=== PATIENT | male | born 1945 | race Caucasian/White ===

== ENCOUNTER 2017-01-21 07:40 | Outpatient (CLI) | payer MEDICARE, OTHER | END 2017-01-21 07:41 | disposition home or self-care (01) | DX: I10 Essential (primary) hypertension (principal); R97.20 Elevated prostate specific antigen [PSA]; E78.5 Hyperlipidemia, unspecified ==

== ENCOUNTER 2018-04-06 07:41 | Outpatient (CLI) | payer MEDICARE, OTHER ==
[2018-04-06 07:53] LABS: BASOPHILS % (AUTO) 0.9 %; EOSINOPHILS # (AUTO) 0.2 10^3/uL (0.0-0.7); HGB - HEMOGLOBIN 15.2 g/dL (14.0-18.0); MEAN CORPUSCULAR HEMOGLOBIN 28.7 pg (27.0-31.0); MEAN CORPUSCULAR HGB CONC 33.6 g/dL (32.0-36.0); MEAN CORPUSCULAR VOLUME 85.5 fL (80.0-94.0); MEAN PLATELET VOLUME 8.7 fL (7.4-11.4); MONOCYTES # (AUTO) 0.5 10^3/uL (0.0-1.0); MONOCYTES % (AUTO) 10.5 %; NEUTROPHILS # (AUTO) 2.5 10^3/uL (1.5-6.6); NEUTROPHILS % (AUTO) 47.6 %; PLT - PLATELET COUNT 191 10^3/uL (130-450); RED BLOOD COUNT 5.29 10^6/uL (4.70-6.10); RED CELL DISTRIBUTION WIDTH 15.3 % (12.0-15.0); WHITE BLOOD COUNT 5.2 x10^3/uL (4.8-10.8)
[2018-04-06 08:51] LABS: ALBUMIN/GLOBULIN RATIO 1.2 (1.0-2.2); ALKALINE PHOSPHATASE 50 IU/L (42-121); ALT ALANINE AMINOTRANSFERASE 23 IU/L (10-60); AST ASPARTATE AMINOTRANSFERASE 22 IU/L (10-42); BILIRUBIN,TOTAL 0.9 mg/dL (0.2-1.0); BUN - BLOOD UREA NITROGEN 16 mg/dL (6-20); CALCIUM 8.9 mg/dL (8.5-10.3); CARBON DIOXIDE - CO2 25 mmol/L (21-32); CHLORIDE 104 mmol/L (101-111); CHOLESTEROL 162 mg/dL; CREATININE 0.9 mg/dL (0.6-1.2); GFR - MDRD 82 (>89); GLUCOSE 99 mg/dL (70-100); HDL CHOLESTEROL 54 mg/dL; LDL CHOLESTEROL,CALCULATED 93 mg/dL; LDL/HDL RATIO 1.7 (<3.6); SODIUM 135 mmol/L (135-145); TOTAL PROTEIN 7.4 g/dL (6.7-8.2); VLDL CHOLESTEROL 15 mg/dL
[2018-04-06 08:56] LABS: PSA FREE 0.71 ng/mL (0.16-2.81)
[2018-04-06 08:57] LABS: PSA TOTAL 4.8 ng/mL (0.000-2.000)
== END 2018-04-06 07:42 | disposition home or self-care (01) ==
LOC: LAB 07:41
PROVIDERS: ATTEND Family Medicine
DX: R42 Dizziness and giddiness (principal); I10 Essential (primary) hypertension; E78.5 Hyperlipidemia, unspecified; R97.20 Elevated prostate specific antigen [PSA]; C67.9 Malignant neoplasm of bladder, unspecified
CPT/HCPCS: 36415; 80053; 80061; 83721; 84154; 85025

== ENCOUNTER 2018-04-20 21:15 | Emergency (ER) | payer MEDICARE, OTHER ==
[2018-04-20 21:21] VITALS: BP 139/78
--- NOTE | 2018-04-20 23:17 | ED Physician Documentation ---
PD HPI OPHTHO - Stated complaint Stated Complaint: DEBRI IN LT EYE - Chief complaint Chief Complaint: Heent - History obtained from History obtained from: Patient - History of Present Illness Timing - onset: Enter time (18:00), Today Timing - duration: Hours Timing - details: Abrupt onset Location: Left Quality / character: Other (FB sensation) Associated symptoms: FB sensation Similar symptoms before: Has not had sx before Recently seen: Not recently seen - Additional information Additional information: while driving this afternoon at approximately 6PM, patient had sudden FB sensation left eye. wears glasses but not contacts. despite irrigating the eye at home, FB sensation persisted and thus came to ED. while awaiting ED evaluation, he had sudden resolution of FB sensation and only has minimal grit sensation left eye. Review of Systems Eyes: reports: Irritation. denies: Loss of vision, Decreased vision, Photophobia, Discharge PD PAST MEDICAL HISTORY - Past Medical History Cardiovascular: Hypertension Respiratory: None Endocrine/Autoimmune: None GI: None : None HEENT: None Psych: None Musculoskeletal: None Derm: None - Past Surgical History Past Surgical History: Yes General: Hiatal hernia repair Ortho: Hip replacement - Present Medications Home Medications: Ambulatory Orders Medication Instructions Recorded Confirmed Finasteride 5 mg PO DAILY 01/19/16 01/19/16 Hydrochlorothiazide 25 mg PO DAILY 01/19/16 01/19/16 Lisinopril 20 mg PO DAILY 01/19/16 01/19/16 Metoprolol Succinate 50 mg PO BID 01/19/16 01/19/16 Simvastatin 10 mg PO DAILY 01/19/16 01/19/16 Neomycin/Poly/Dexam Ophth Oint 0.25 inch RIGHTEYE BID #1 tube 01/20/16 [Maxitrol Ophth Oint] - Allergies Allergies/Adverse Reactions: Allergies Allergy/AdvReac Type Severity Reaction Status Date / Time morphine AdvReac Emesis Verified 04/20/18 21:21 - Social History Does the pt smoke?: No Smoking Status: Never smoker Does the pt drink ETOH?: Yes Does the pt have substance abuse?: No - Immunizations Immunizations are current?: Yes - POLST Patient has POLST: No PD ED PE NORMAL - Vitals Vital signs reviewed: Yes - General General: Alert and oriented X 3, No acute distress, Well developed/nourished - HEENT HEENT: PERRL, EOMI PD ED PE EXPANDED - Eyes Eyes: Normal eyelids, No eyelid FB (everted), Nl conjunctiva/sclera, Fluorescein uptake (punctate uptake at limbus, 12 oclock position) Results - Vitals Vitals: Oxygen O2 Source Room air PD MEDICAL DECISION MAKING - ED course Complexity details: considered differential, d/w patient - Sepsis Event Vital Signs: Oxygen O2 Source Room air Departure - Departure Disposition: Home, Self Care Clinical Impression: Corneal abrasion, left Condition: Good Instructions: ED Eye Injury Corneal Abrasion Comments: 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 Use the antibiotic drops as follows: 1 drop in left eye four times per day for 5 days Discharge Date/Time: 04/20/18 23:45
[2018-04-20] MEDS ORDERED: POLYMYXIN B/TRIMETH OPHTH DROPS LEFTEYE STA (23:30)
== END 2018-04-20 23:45 | disposition home or self-care (01) ==
LOC: ED 21:15
DX: S05.02XA Injury of conjunctiva and corneal abrasion without foreign body, left eye, initial encounter (principal); X58.XXXA Exposure to other specified factors, initial encounter; Y92.810 Car as the place of occurrence of the external cause; I10 Essential (primary) hypertension
CPT/HCPCS: 99283; A9270

== ENCOUNTER 2018-05-31 11:02 | Emergency (ER) | payer MEDICARE, OTHER ==
[2018-05-31 11:20] VITALS: BP 146/73
--- NOTE | 2018-05-31 12:54 | ED Physician Documentation ---
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.) Where injury occurred: Work Timing - onset: Today Timing - details: Abrupt onset Similar symptoms before: Has not had sx before Recently seen: Not recently seen Review of Systems Neurologic: denies: Focal weakness, Numbness PD PAST MEDICAL HISTORY - Past Medical History Cardiovascular: Hypertension Respiratory: None Endocrine/Autoimmune: None GI: None : None HEENT: None Psych: None Musculoskeletal: None Derm: None - Past Surgical History Past Surgical History: Yes General: Hiatal hernia repair Ortho: Hip replacement - Present Medications Home Medications: Ambulatory Orders Medication Instructions Recorded Confirmed Finasteride 5 mg PO DAILY 01/19/16 01/19/16 Hydrochlorothiazide 25 mg PO DAILY 01/19/16 01/19/16 Lisinopril 20 mg PO DAILY 01/19/16 01/19/16 Metoprolol Succinate 50 mg PO BID 01/19/16 01/19/16 Simvastatin 10 mg PO DAILY 01/19/16 01/19/16 Neomycin/Poly/Dexam Ophth Oint 0.25 inch RIGHTEYE BID #1 tube 01/20/16 [Maxitrol Ophth Oint] - Allergies Allergies/Adverse Reactions: Allergies Allergy/AdvReac Type Severity Reaction Status Date / Time morphine AdvReac Emesis Verified 05/31/18 11:20 - Social History Does the pt smoke?: No Smoking Status: Never smoker Does the pt drink ETOH?: Yes Does the pt have substance abuse?: No - Immunizations Immunizations are current?: Yes - POLST Patient has POLST: No PD ED PE NORMAL - Vitals Vital signs reviewed: Yes - General General: Alert and oriented X 3, No acute distress, Well developed/nourished - Derm Derm: Normal color, Warm and dry - Extremities Extremities: Other (dorsum left ring finger MCP with 1.5 cm laceration to fatty tissue. No FB. No deep structures involved. ) Results - Vitals Vitals: Vital Signs - 24 hr 05/31/18 11:16 Temperature 36.0 C L Heart Rate 64 Respiratory 16 Rate Blood Pressure 146/73 H O2 Saturation 96 Oxygen O2 Source Room air Procedures - Laceration (location) left MCP dorsal area Length in cm: 1.5 Wound type: Linear, Into subcut fat, Clean Neurovascular status: No: Sensory intact, Motor intact Anesthesia: Marcaine 0.25% Wound Preparation: Irrigated copiously NS Skin layer closure: Nylon, Interrupted, Size #-0 - enter number Other: Patient tolerated well, No complications, Neurovascular intact, Dressing applied, Tetanus UTD PD MEDICAL DECISION MAKING - Sepsis Event Vital Signs: Vital Signs - 24 hr 05/31/18 11:16 Temperature 36.0 C L Heart Rate 64 Respiratory 16 Rate Blood Pressure 146/73 H O2 Saturation 96 Oxygen O2 Source Room air Departure - Departure Disposition: Home, Self Care Clinical Impression: Laceration of left hand Qualifiers: Encounter type: initial encounter Foreign body presence: without foreign body Qualified Code(s): S61.412A - Laceration without foreign body of left hand, initial encounter Condition: Stable Record reviewed to determine appropriate education?: Yes Instructions: ED Laceration Hand Follow-Up: Rolando Barry MD [Primary Care Provider] - Comments: It is okay to wash and shower. Clean off the wound twice a day with soap and water, or peroxide and water. Apply some antibiotic ointment to it to keep it moist. Also to watch for signs of infection such as purulence, redness or increasing pain. Return to your primary care or the ER at the specified time for suture removal. Suture removal 8-10 days. You did receive a tetanus booster here so should be good for 10 years. Tylenol or ibuprofen or naproxen if needed for pains. Regular use of the hand should be okay. Discharge Date/Time: 05/31/18 13:38
[2018-05-31] MEDS ORDERED: TETANUS/DIPHTHERIA/PERTUSSIS 0.5 ML SYRINGE IM ONE (13:19)
== END 2018-05-31 13:38 | disposition home or self-care (01) ==
LOC: ED 11:02
DX: S61.215A Laceration without foreign body of left ring finger without damage to nail, initial encounter (principal); W31.1XXA Contact with metalworking machines, initial encounter; Y99.0 Civilian activity done for income or pay; I10 Essential (primary) hypertension; Z96.649 Presence of unspecified artificial hip joint; Z23 Encounter for immunization
CPT/HCPCS: 12001; 90471; 99281; 99283

== ENCOUNTER 2019-01-17 09:57 | Outpatient (CLI) | payer MEDICARE, OTHER ==
--- NOTE | 2019-01-17 12:13 | XRAY Report ---
Reason: NECK PAIN Procedure Date: 01/17/2019 Accession Number: [id number] / [id number] Procedure: XR - Cervical Spine 2 View CPT Code: FULL RESULT: EXAM: CERVICAL SPINE RADIOGRAPHY EXAM DATE: 01/17/2019 10:25 AM. CLINICAL HISTORY: Neck pain. COMPARISONS: None. TECHNIQUE: 3 views. FINDINGS: Alignment: Normal. No spondylolisthesis or scoliosis. Bones: The cervical vertebral bodies and posterior elements are well visualized from the skull base through C7-T1. No fractures or bone lesions. Disks: Mild loss of disk space height is most pronounced at C5-C6 and C6-C7 with disk osteophyte complex formation. Facets: Mild multilevel facet arthropathy. Soft Tissues: Normal. No prevertebral soft tissue swelling. The visualized lung apices are clear. IMPRESSION: Multilevel degenerative changes as described. Please note that the atlantooccipital joint is not well seen on plain radiographs. RADIA
== END 2019-01-17 09:58 | disposition home or self-care (01) ==
LOC: DI 09:57
PROVIDERS: ATTEND Family Medicine
DX: M54.2 Cervicalgia (principal); M25.78 Osteophyte, vertebrae
CPT/HCPCS: 72040

== ENCOUNTER 2019-01-24 16:19 | Outpatient (CLI) | payer MEDICARE, OTHER ==
--- NOTE | 2019-01-25 12:12 | MRI Report ---
Reason: RADICULOPATHY, CERVICAL REGION Procedure Date: 01/24/2019 Accession Number: [id number] / [id number] Procedure: MRI - Cervical Spine W/O CPT Code: FULL RESULT: EXAM: MRI CERVICAL SPINE WITHOUT CONTRAST EXAM DATE: 01/24/2019 04:59 PM. CLINICAL HISTORY: Radiculopathy, cervical region. COMPARISONS: None. TECHNIQUE: Multiplanar, multisequence T1-weighted and fluid-sensitive sequences of the cervical spine without contrast. Other: None. FINDINGS: Neurologic Structures: The visualized posterior fossa structures are unremarkable. No signal abnormality in the visualized spinal cord. Alignment: No scoliosis or spondylolisthesis. Bone Marrow: No acute fractures or bone lesions. No marrow edema. There may have been previous superior endplate compression injuries at T3 and T4, slight indentation of the superior endplates, no retropulsion. Interspace Levels/Facets: C1-C2: Some arthritic changes seen anteriorly. No stenosis. C2-C3: Normal disk. No central or foraminal stenosis. C3-C4: Broad-based disk bulge is seen. Severe bilateral foraminal stenosis. Mild central stenosis. C4-C5: Broad-based disk bulge. Moderate central stenosis. Severe bilateral foraminal stenosis. C5-C6: Broad-based disk bulge. Moderate central stenosis and severe bilateral foraminal stenosis. C6-C7: Disk osteophyte complex. Severe central and bilateral foraminal stenosis. C7-T1: Left-sided disk osteophyte complex. No central stenosis. Moderate right foraminal stenosis, left neural foramina is normal. Musculature: Moderate fatty atrophy of the multifidus muscle is seen. Other: The paravertebral and prevertebral soft tissues are normal. IMPRESSION: 1. Spinal cord shows no areas of abnormal increased T2 signal. Posterior fossa also normal. Moderate fatty atrophy of the multifidus muscle also seen. Bones and marrow also show no acute fractures. There may have been previous superior endplate compression injuries at T3 and T4, no retropulsion and no marrow edema. 2. C2-C3 shows no stenosis. 3. C3-C4 shows severe bilateral foraminal stenosis and mild central stenosis. 4. C4-C5 shows severe bilateral foraminal stenosis and moderate central stenosis. 5. C5-C6 shows a broad-based bulge, moderate central stenosis and severe bilateral foraminal stenosis. 6. C6-C7 shows disk osteophyte complex, severe central and bilateral foraminal stenosis. 7. C7-T1 shows left-sided disk osteophyte complex. Moderate right foraminal stenosis. Left neural foramen is normal. RADIA
== END 2019-01-24 16:20 | disposition home or self-care (01) ==
LOC: DI 16:19
PROVIDERS: ATTEND Family Medicine
DX: M50.31 Other cervical disc degeneration, high cervical region (principal); M48.02 Spinal stenosis, cervical region
CPT/HCPCS: 72141

== ENCOUNTER 2021-01-23 08:04 | Outpatient (CLI) | payer MEDICARE, BC ==
[2021-01-23 08:26] LABS: BASOPHILS % (AUTO) 0.8 %; EOSINOPHILS # (AUTO) 0.1 10^3/uL (0.0-0.7); EOSINOPHILS % (AUTO) 1.9 %; HCT - HEMATOCRIT 45.4 % (42.0-52.0); HGB - HEMOGLOBIN 15.1 g/dL (14.0-18.0); LYMPHOCYTES % (AUTO) 36.8 %; MEAN CORPUSCULAR HEMOGLOBIN 29.4 pg (27.0-31.0); MEAN CORPUSCULAR HGB CONC 33.3 g/dL (32.0-36.0); MEAN CORPUSCULAR VOLUME 88.3 fL (80.0-94.0); MEAN PLATELET VOLUME 10.2 fL (7.4-11.4); MONOCYTES # (AUTO) 0.4 10^3/uL (0.0-1.0); MONOCYTES % (AUTO) 8.3 %; NEUTROPHILS # (AUTO) 2.8 10^3/uL (1.5-6.6); NEUTROPHILS % (AUTO) 51.8 %; PLT - PLATELET COUNT 187 10^3/uL (130-450); RED BLOOD COUNT 5.14 10^6/uL (4.70-6.10); RED CELL DISTRIBUTION WIDTH 13.7 % (12.0-15.0); WHITE BLOOD COUNT 5.3 x10^3/uL (4.8-10.8)
[2021-01-23 08:40] LABS: ALBUMIN 4.3 g/dL (3.2-5.5); ALBUMIN/GLOBULIN RATIO 1.4 (1.0-2.2); ALKALINE PHOSPHATASE 40 IU/L (42-121); ALT ALANINE AMINOTRANSFERASE 18 IU/L (10-60); AST ASPARTATE AMINOTRANSFERASE 18 IU/L (10-42); BILIRUBIN,TOTAL 0.8 mg/dL (0.2-1.0); BUN - BLOOD UREA NITROGEN 18 mg/dL (6-20); CALCIUM 9.1 mg/dL (8.5-10.3); CARBON DIOXIDE - CO2 26 mmol/L (21-32); CHLORIDE 106 mmol/L (101-111); CHOLESTEROL 193 mg/dL; CREATININE 0.8 mg/dL (0.6-1.2); GFR - MDRD 94 (>89); GLUCOSE 101 mg/dL (70-100); HDL CHOLESTEROL 64 mg/dL; LDL CHOLESTEROL,CALCULATED 116 mg/dL; LDL/HDL RATIO 1.8 (<3.6); SODIUM 139 mmol/L (135-145); TOTAL PROTEIN 7.3 g/dL (6.7-8.2); TRIGLYCERIDES 67 mg/dL; VLDL CHOLESTEROL 13 mg/dL
== END 2021-01-23 08:05 | disposition home or self-care (01) ==
LOC: LAB 08:04
PROVIDERS: ATTEND Internal Medicine
DX: I10 Essential (primary) hypertension (principal); E78.5 Hyperlipidemia, unspecified
CPT/HCPCS: 36415; 80053; 80061; 83721; 85025

== ENCOUNTER 2021-09-18 18:27 | Emergency (ER) | payer MEDICARE, BC ==
--- NOTE | 2021-09-18 19:33 | ED Physician Documentation ---
PD HPI HEAD INJURY - Stated complaint Stated Complaint: HEAD INJ - Chief complaint Chief Complaint: Trauma Hd/Nk - History obtained from History obtained from: Patient - History of Present Illness Mechanism of head injury: Laceration Where head injury occurred: Home Timing - onset: How many minutes ago (45) Pain level max: 2 Pain level now: 0 Location of injury: Top Quality of pain: Pain Associated symptoms: No: LOC, AMS, Amnesia, Nausea / vomiting, Neck pain, Paresthesias, Seizures, Ear drainage, Nasal drainage Symptoms improve with: Rest Symptoms worsen with: Palpation Contributing factors: No: Anticoagulated, Intoxicated - Additional information Additional information: accidentally walked into a ladder and cut his head. Td UTD Review of Systems Musculoskeletal: denies: Neck pain, Back pain Neurologic: denies: Headache, LOC PD PAST MEDICAL HISTORY - Past Medical History Cardiovascular: Hypertension Respiratory: None Endocrine/Autoimmune: None GI: None : None HEENT: None Psych: None Musculoskeletal: None Derm: None - Past Surgical History Past Surgical History: Yes General: Hiatal hernia repair Ortho: Hip replacement - Present Medications Home Medications: Ambulatory Orders Medication Instructions Recorded Confirmed Finasteride 5 mg PO DAILY 01/19/16 01/19/16 Lisinopril 20 mg PO DAILY 01/19/16 01/19/16 Metoprolol Succinate 50 mg PO BID 01/19/16 01/19/16 Simvastatin 10 mg PO DAILY 01/19/16 01/19/16 hydroCHLOROthiazide 25 mg PO DAILY 01/19/16 01/19/16 [Hydrochlorothiazide] Neomycin/Poly/Dexam Ophth Oint 0.25 inch RIGHTEYE BID #1 tube 01/20/16 [Maxitrol Ophth Oint] - Allergies Allergies/Adverse Reactions: Allergies Allergy/AdvReac Type Severity Reaction Status Date / Time morphine AdvReac Emesis Verified 09/18/21 18:30 - Social History Does the pt smoke?: No Smoking Status: Never smoker Does the pt drink ETOH?: Yes Does the pt have substance abuse?: No - Immunizations Immunizations are current?: Yes - POLST Patient has POLST: No PD ED PE NORMAL - Vitals Vital signs reviewed: Yes - General General: Alert and oriented X 3, No acute distress - HEENT HEENT: PERRL, Moist mucous membranes, Other (1 cm linear laceration to the right top of head.) - Neck Neck: Supple, no meningeal sign - Cardiac Cardiac: RRR - Respiratory Respiratory: No respiratory distress, Clear bilaterally - Derm Derm: Warm and dry - Neuro Neuro: Alert and oriented X 3, home 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 nurse 2-12 intact, No motor deficit, No sensory deficit, Normal speech Eye Opening: Spontaneous Motor: Obeys Commands Verbal: Oriented GCS Score: 15 - Psych Psych: Normal mood, Normal affect Results - Vitals Vitals: Vital Signs - 24 hr 09/18/21 09/18/21 18:30 19:42 Temperature 36.5 C Heart Rate 100 85 Respiratory 16 16 Rate Blood Pressure 150/84 H 148/84 H O2 Saturation 96 100 Oxygen O2 Source Room air Procedures - Laceration (location) Right scalp Length in cm: 1 Wound type: Linear, Superficial, Clean Neurovascular status: Sensory intact, Motor intact, Vascular intact Wound preparation: Irrigated copiously NS Skin layer closure: [place] (2) Other: Patient tolerated well, No complications, Neurovascular intact, Tetanus UTD PD MEDICAL DECISION MAKING - ED course Complexity details: considered differential, d/w patient ED course: Laceration repair with ryan. GCS 15. No evidence of skull fracture or intracranial hemorrhage. Not on anticoagulants. No neck pain. Warnings of infection and instructions on wound care given at bedside. Also counseled on how to minimize scarring. Tetanus up-to-date patient counseled regarding signs and symptoms for which I believe and urgent re-evaluation would be necessary. Patient with good understanding of and agreement to plan and is comfortable going home at this time This document was made in part using voice recognition software. While efforts are made to proofread this document, sound alike and grammatical errors may occur. Departure - Departure Disposition: 01 Home, Self Care Clinical Impression: Scalp laceration Qualifiers: Encounter type: initial encounter Qualified Code(s): S01.01XA - Laceration without foreign body of scalp, initial encounter Condition: Good Instructions: ED Laceration Scalp Stitch Or Stap Follow-Up: ISREAL CORTEZ MD [Primary Care Provider] - Comments: Laceration was repaired with ryan. Please follow-up with your doctor for removal of ryan in about 10 days. Return if you worsen. Keep the wound clean. Return if you notice redness, swelling or drainage from the wound. Discharge Date/Time: 09/18/21 19:43
[2021-09-18 19:43] VITALS: BP 148/84
== END 2021-09-18 19:43 | disposition home or self-care (01) ==
LOC: ED 18:27
DX: S01.01XA Laceration without foreign body of scalp, initial encounter (principal); W22.09XA Striking against other stationary object, initial encounter; Y93.01 Activity, walking, marching and hiking
CPT/HCPCS: 12001; 99281

== ENCOUNTER 2022-12-20 11:14 | Emergency (ER) | payer MEDICARE, OTHER ==
[2022-12-20 11:22] VITALS: BP 158/94
--- NOTE | 2022-12-20 11:45 | XRAY Report ---
PROCEDURE: Knee 4 View LT INDICATIONS: Trauma TECHNIQUE: 4 views of the left knee(s) were acquired. COMPARISON: None. FINDINGS: Bones: There is a vertically oriented fracture of the lateral patella with minimal displacement. Soft tissues: No joint effusion. No suspicious soft tissue calcifications. IMPRESSION: Vertically oriented fracture of the lateral patella. Reviewed by: Brandt Marion on 12/20/2022 10:44 AM DANIEL Approved by: Brandt Marion on 12/20/2022 10:44 AM DANIEL Station ID: [id number]
--- NOTE | 2022-12-20 12:03 | ED Physician Documentation ---
PD HPI LOWER EXT INJURY - Stated complaint Stated Complaint: GLF/LT KNEE INJ - Chief complaint Chief Complaint: Trauma Ext - History obtained from History obtained from: Patient - Additional information Additional information: He tripped over his hose this morning, landed right on the left knee. No other injuries. Pain is mild at rest and he has difficulty with range of motion though. Pain is gotten a little bit worse over time. PD PAST MEDICAL HISTORY - Past Medical History Cardiovascular: Hypertension Respiratory: None Endocrine/Autoimmune: None GI: None : None HEENT: None Psych: None Musculoskeletal: None Derm: None - Past Surgical History Past Surgical History: Yes General: Hiatal hernia repair Ortho: Hip replacement - Present Medications Home Medications: Ambulatory Orders Medication Instructions Recorded Confirmed Finasteride 5 mg PO DAILY 01/19/16 01/19/16 Lisinopril 20 mg PO DAILY 01/19/16 01/19/16 Metoprolol Succinate 50 mg PO BID 01/19/16 01/19/16 Simvastatin 10 mg PO DAILY 01/19/16 01/19/16 hydroCHLOROthiazide 25 mg PO DAILY 01/19/16 01/19/16 [Hydrochlorothiazide] Neomycin/Poly/Dexam Ophth Oint 0.25 inch RIGHTEYE BID #1 tube 01/20/16 [Maxitrol Ophth Oint] - Allergies Allergies/Adverse Reactions: Allergies Allergy/AdvReac Type Severity Reaction Status Date / Time morphine AdvReac Emesis Verified 12/20/22 11:22 - Social History Does the pt smoke?: No Smoking Status: Never smoker Does the pt drink ETOH?: Yes Does the pt have substance abuse?: No - Immunizations Immunizations are current?: Yes - POLST Patient has POLST: No PD ED PE NORMAL - Vitals Vital signs reviewed: Yes - General General: Alert and oriented X 3, No acute distress - Neck Neck: No bony TTP - Extremities Extremities: Other (Focally tender over the left patella with swelling anteriorly. He has intact quadriceps function and Benza pretty well 2.) - Neuro Neuro: Alert and oriented X 3, Normal speech Results - Vitals Vitals: Vital Signs - 24 hr 12/20/22 11:19 Temperature 35.6 C L Heart Rate 80 Respiratory 16 Rate Blood Pressure 158/94 H O2 Saturation 97 Oxygen O2 Source Room air - Rads (name of study) 4 view x-ray of the left knee demonstrates a vertically oriented patellar fracture Relevant Findings:: Final report received, EMP independent interpretation of test PD Medical Decision Making - ED course ED course: 77-year-old gentleman with isolated left knee injury, vertically oriented patellar fracture without neurovascular compromise or quadricep function issue. He is placed in a knee immobilizer and referred to orthopedics. Departure - Departure Disposition: 01 Home, Self Care Clinical Impression: Left patella fracture Qualifiers: Encounter type: initial encounter Fracture type: closed Fracture morphology: longitudinal Fracture alignment: nondisplaced Qualified Code(s): S82.025A - Nondisplaced longitudinal fracture of left patella, initial encounter for closed fracture Condition: Good Record reviewed to determine appropriate education?: Yes Instructions: ED Fx Knee Follow-Up: [facility] [Provider Group] - Within 1 week Comments: Wear the knee immobilizer religiously until you see the orthopedic surgeon, call the office tomorrow for the next available appointment. Return for new or worsening symptoms. Tylenol and/or ibuprofen as needed for pain.
== END 2022-12-20 12:21 | disposition home or self-care (01) ==
LOC: ED 11:14
DX: S82.025A Nondisplaced longitudinal fracture of left patella, initial encounter for closed fracture (principal); W01.0XXA Fall on same level from slipping, tripping and stumbling without subsequent striking against object, initial encounter
CPT/HCPCS: 99283

== ENCOUNTER 2023-01-05 10:10 | Outpatient (CLI) | payer MEDICARE, OTHER ==
--- NOTE | 2023-01-05 13:20 | XRAY Report ---
PROCEDURE: Knee 4 View LT INDICATIONS: LEFT PATELLA FRACTURE TECHNIQUE: 4 views of the left knee(s) were acquired. COMPARISON: X-ray knee 12/20/2022 FINDINGS: Bones: Previously identified minimally displaced fracture along the lateral aspect of the patella is unchanged. Fracture lucency extends to the joint space. It extends anterior to posterior. No suspici ous bony lesions. Soft tissues: No joint effusion. No suspicious soft tissue calcifications. IMPRESSION: Stable appearance of minimally displaced lateral patellar fracture. Reviewed by: Aranza Jean MD on 01/05/2023 1:18 PM PDT Approved by: Aranza Jean MD on 01/05/2023 1:18 PM PDT Station ID: [id number]
== END 2023-01-05 10:11 | disposition home or self-care (01) ==
LOC: DI.WOS 10:10
PROVIDERS: ATTEND Orthopaedic Surgery
DX: S82.002D Unspecified fracture of left patella, subsequent encounter for closed fracture with routine healing (principal)

== ENCOUNTER 2023-01-19 14:16 | Outpatient (CLI) | payer MEDICARE, OTHER ==
--- NOTE | 2023-01-19 14:41 | XRAY Report ---
PROCEDURE: Knee 3 View LT INDICATIONS: LEFT PATELLA FRACTURE TECHNIQUE: 3 views of the left knee(s) were acquired. COMPARISON: X-ray left knee, 12/20/2022 and 12/28/2022. FINDINGS: Bones: Nondisplaced vertical fracture of the lateral facet of patella. The alignment is stable. No suspicious bony lesions. Soft tissues: Small knee joint effusion. No suspicious soft tissue calcifications or masses. IMPRESSION: Healing nondisplaced patellar fracture. Reviewed by: Shey Menendez MD on 01/19/2023 2:39 PM PDT Approved by: Shey Menendez MD on 01/19/2023 2:39 PM PDT Station ID: [id number]
== END 2023-01-19 14:18 | disposition home or self-care (01) ==
LOC: DI.WOS 14:16
PROVIDERS: ATTEND Orthopaedic Surgery
DX: S82.092D Other fracture of left patella, subsequent encounter for closed fracture with routine healing (principal)

== ENCOUNTER 2023-02-02 08:00 | Outpatient (CLI) | payer MEDICARE, OTHER ==
--- NOTE | 2023-02-02 14:56 | XRAY Report ---
PROCEDURE: Knee 3 View LT INDICATIONS: LEFT PATELLA FRACTURE TECHNIQUE: 3 views of the left knee(s) were acquired. COMPARISON: 01/19/2023 FINDINGS: Bones: Redemonstrated minimally displaced fracture of the lateral facet of the patella. Alignment is similar to before. No substantial bony callus visualized at this time. Soft tissues: No knee joint effusion. No suspicious soft tissue calcifications. IMPRESSION: Similar appearance and alignment of the previously demonstrated minimally displaced patellar fracture . Reviewed by: Jl Hendricks MD on 02/02/2023 2:55 PM PDT Approved by: Jl Hendricks MD on 02/02/2023 2:55 PM PDT Station ID: [id number]
== END 2023-02-02 08:01 | disposition home or self-care (01) ==
LOC: DI.WOS 08:00
PROVIDERS: ATTEND Orthopaedic Surgery
DX: S82.092D Other fracture of left patella, subsequent encounter for closed fracture with routine healing (principal)

== ENCOUNTER 2023-07-14 17:17 | Emergency (ER) | payer MEDICARE, OTHER ==
[2023-07-14 17:32] VITALS: BP 172/94; O2SAT 97
--- NOTE | 2023-07-14 17:33 | ED Physician Documentation ---
PD HPI HEENT - Stated complaint Stated Complaint: R EAR PX - Chief complaint Chief Complaint: Heent - History obtained from History obtained from: Patient - History of Present Illness Timing - onset: Yesterday (pt getting fitted for hearing aides and the cookie mixer helper noted enough was in canals to inhibit sizing for the aides. Pt went to Walk In yesterday for earwax removal. He states they were irrigated and the provider also did some currette removal. Pt said it was painful and had some blood out of ear.) Timing - details: Abrupt onset (had some pain and bleeding with currette wax removal yeserday. Back to cookie mixer helper today for hearing aide sizing and pictures taken of the canal showed small laceration. Needs to heal prior to aide sizing/placement. Pt here for eval of the injury.) Location: Right ear, Left ear Recently seen: Clinic (see above) Review of Systems Constitutional: denies: Fever, Chills Nose: denies: Rhinorrhea / runny nose, Congestion Throat: denies: Sore throat Respiratory: denies: Cough PD PAST MEDICAL HISTORY - Past Medical History Cardiovascular: Hypertension Respiratory: None Endocrine/Autoimmune: None GI: None : None HEENT: None Psych: None Musculoskeletal: None Derm: None - Past Surgical History Past Surgical History: Yes General: Hiatal hernia repair Ortho: Hip replacement - Present Medications Home Medications: Ambulatory Orders Medication Instructions Recorded Confirmed Finasteride 5 mg PO DAILY 01/19/16 01/19/16 Lisinopril 20 mg PO DAILY 01/19/16 01/19/16 Metoprolol Succinate 50 mg PO BID 01/19/16 01/19/16 Simvastatin 10 mg PO DAILY 01/19/16 01/19/16 Neomycin/Polymyx/Hc Otic Drops 4 drops EACHEAR TID 5 Days #10 ml 07/14/23 [Cortisporin Ear Susp] - Allergies Allergies/Adverse Reactions: Allergies Allergy/AdvReac Type Severity Reaction Status Date / Time morphine AdvReac Emesis Verified 12/20/22 11:22 - Social History Does the pt smoke?: No Smoking Status: Never smoker Does the pt drink ETOH?: Yes Does the pt have substance abuse?: No - Immunizations Immunizations are current?: Yes - POLST Patient has POLST: No PD ED PE NORMAL - Vitals Vital signs reviewed: Yes - General General: Alert and oriented X 3, No acute distress, Well developed/nourished - HEENT HEENT: No: Ears normal (left ear showing abrasion with small amount dried blood in lower outer portion of canal. No wax seen. Right canal with small mucosal tissue tear 6 oclock position with tissue in place and small amount dried blood. No signs of infection. No wax. TMs boht sides are okay. ) Results - Vitals Vitals: Vital Signs - 24 hr 07/14/23 17:19 Temperature 36.7 C Heart Rate 79 Respiratory 18 Rate Blood Pressure 172/94 H O2 Saturation 97 Oxygen O2 Source Room air PD Medical Decision Making - ED course Complexity details: considered differential (Outer canal injury from ear wax removal yesterday. Should heal okay. Can use soem drops to keep moisturized and reduce chance infection. He has cookie mixer helper appt in a week for hearing aide fitting and I think this should be time enough for healing. ), d/w patient ED course: I told the patient that it is not too unusual to get some abrasion of the canal with curretting of the wax and even with irrigation sometimes. Departure - Departure Disposition: 01 Home, Self Care Clinical Impression: Abrasion of ear canal Qualifiers: Encounter type: initial encounter Laterality: left Qualified Code(s): S00.412A - Abrasion of left ear, initial encounter Laceration of right ear canal Qualifiers: Encounter type: initial encounter Qualified Code(s): S01.311A - Laceration without foreign body of right ear, initial encounter Condition: Stable Record reviewed to determine appropriate education?: Yes Follow-Up: ISREAL CORTEZ MD [Primary Care Provider] - Prescriptions: Neomycin/Polymyx/Hc Otic Drops [Cortisporin Ear Susp] 4 drops EACHEAR TID 5 Days #10 ml Comments: The ear canals do look to have injury on both sides. The left side is really more of an abrasion with a little bit of dried blood collected. No signs of ongoing bleeding. No signs of current infection. The right side has more of a superficial tear of the mucosal tissue but it is laying in position and should heal adequately in place. Again no signs of infection at this point. He can be reasonable to use some antibiotic eardrops a few times daily over the next several days as this is healing. I would anticipate these healing up fine over time course of about a week. Recheck if you have pain developing through the area or any lymph nodes or any external redness or swelling develop around the ear itself. I sent your prescription to [facility] pharmacy. Forms: PCP List Discharge Date/Time: 07/14/23 18:24
== END 2023-07-14 18:24 | disposition home or self-care (01) ==
LOC: ED 17:17
DX: S01.311A Laceration without foreign body of right ear, initial encounter (principal); X58.XXXA Exposure to other specified factors, initial encounter; I10 Essential (primary) hypertension; Z79.899 Other long term (current) drug therapy
CPT/HCPCS: 99282; 99283